=== PATIENT | female | born 1990 | race Hispanic/Latino ===

== ENCOUNTER 2021-07-12 13:55 | Day surgery (SDC) | payer OTHER ==
[2021-07-12] MEDS ORDERED: hydrALAZINE 20 MG/ML VIAL SLOW IVP PRN (15:46)
[2021-07-12 16:18] VITALS: BMI 33.6
[2021-07-12 16:25] LABS: Bilirubin Neg (Negative); Blood, Urine 10 (Negative); Clarity Clear (Clear); Glucose, Urine (Dipstick) Normal (Negative); Ketone, Urine Negative (Negative); Leukocyte 25 (Negative); Nitrite Negative (Negative); Protein, Urine (Dipstick) Negative (Neg-Trace); Specific Gravity, Urine 1.005 (1.002-1.036); Urobilinogen Normal mg/dL (Less than 2)
[2021-07-12 16:50] LABS: RBC/HPF 0-3 HPF (0-3); WBC/HPF 0-3 HPF (0-3)
[2021-07-12 16:51] LABS: Bacteria/HPF Rare-Few HPF (None Seen); Squamous Epithelial 0-3 HPF (0-3)
== END 2021-07-12 17:10 | disposition home health service (06) ==
LOC: CSHLD/OP 13:55
PROVIDERS: ATTEND Obstetrics & Gynecology
DX: O99.891 Other specified diseases and conditions complicating pregnancy (principal); R10.2 Pelvic and perineal pain; Z3A.36 36 weeks gestation of pregnancy
CPT/HCPCS: 81003; 81015; 99282

== ENCOUNTER 2021-07-22 13:50 | Outpatient (CLI) | payer OTHER ==
[2021-07-23 08:59] LABS: SARS-CoV-2 PCR by NAA Not Detected (NotDetected)
== END 2021-07-22 13:51 | disposition home or self-care (01) ==
LOC: CSHLAB 13:50
PROVIDERS: ATTEND Obstetrics & Gynecology
DX: Z20.822 Contact with and (suspected) exposure to COVID-19 (principal)
CPT/HCPCS: U0003; U0005

== ENCOUNTER 2021-07-23 08:53 | Inpatient (IN) | payer BC, OTHER, SELFPAY ==
[2021-07-23] MEDS ORDERED: Ondansetron PF 4 MG/2 ML Vial IVP PRN ×3 (08:54→19:18)
[2021-07-23] MEDS ORDERED: Diphenoxylate HCl/Atropine Tablet PO PRN ×2 (08:54)
[2021-07-23] MEDS ORDERED: Promethazine HCl 25 MG/ML VIAL IM PRN ×2 (08:54→19:12)
[2021-07-23] MEDS ORDERED: Acetaminophen 500 MG TAB PO PRN (08:54)
[2021-07-23] MEDS ORDERED: Misoprostol 200 MCG TAB PR PRN ×2 (08:54→19:18)
[2021-07-23] MEDS ORDERED: hydrALAZINE 20 MG/ML VIAL SLOW IVP PRN ×2 (08:54→19:18)
[2021-07-23] MEDS ORDERED: HYDROcodone/Acetaminophen 5/325 mg Tablet PO PRN ×2 (08:54)
[2021-07-23] MEDS ORDERED: Lidocaine 1% (PF) 30 ML VIAL SC PRN (08:54)
[2021-07-23] MEDS ORDERED: Ibuprofen 800 MG TAB PO PRN (08:54)
[2021-07-23] MEDS ORDERED: Butorphanol Tartrate 1 MG/ML VIAL SLOW IVP PRN (08:54)
[2021-07-23] MEDS ORDERED: Docusate 100 MG CAP PO PRN (08:54)
[2021-07-23] MEDS ORDERED: Lactated Ringer's 1,000 ML IV SCH (09:00)
[2021-07-23] MEDS ORDERED: NS w/ Oxytocin 30 units 500 ML IVPB SCH (09:00)
[2021-07-23] MEDS ORDERED: NS w/ Oxytocin 30 units 500 ML IV SCH ×3 (09:00→20:30)
[2021-07-23 10:14] VITALS: BMI 40.2
[2021-07-23 10:28] LABS: Hemoglobin 9.1 g/dL (12.0-15.5); Mean Corpuscular HGB CONC 29.9 g/dL (32.0-36.0); Mean Corpuscular Hemoglobin 19.5 pg (27.0-33.0); Mean Corpuscular Volume 65.1 fl (81.6-98.3); Mean Platelet Volume 10.2 fl (7.4-10.4); Platelet Count 306 10x3/uL (150-450); RBC Distribution Width 18.4 % (11.5-14.5); Red Blood Cell (RBC) Count 4.67 10x6/uL (3.90-5.03); White Blood Cell (WBC) Count 13.4 10x3/uL (3.5-10.5)
[2021-07-23 11:00] LABS: HIV (1/2) Antibody/Antigen Non-Reactive (NonReactive); HIV 1/2 INDEX 0.07 S/CO (<1.00); Hep B Surf Ag Non-Reactive S/CO (NonReactive)
[2021-07-23 11:01] LABS: Syphilis Antibody Nonreactive (Nonreactive); Syphilis Antibody Index 0.04 S/CO (<1.00 Non-Reactive)
[2021-07-23 11:04] LABS: HBSAg Index 0.16 S/CO (0-0.99)
[2021-07-23] MEDS ORDERED: Terbutaline Sulfate 1 MG/ML VIAL ONE (17:31)
[2021-07-23] MEDS ORDERED: Fentanyl 100 MCG/2 ML VIAL ONE (17:45)
[2021-07-23] MEDS ORDERED: Morphine PF 10 MG/10 ML VIAL ONE (17:45)
[2021-07-23] MEDS ORDERED: Ketorolac Tromethamine 30 MG/ML VIAL ONE (17:46)
[2021-07-23] MEDS ORDERED: PROPOFOL 0 ML ONE (17:46)
[2021-07-23] MEDS ORDERED: Succinylcholine 200 MG/10 ml SYRINGE FS ONE (17:46)
[2021-07-23] MEDS ORDERED: Ondansetron PF 4 MG/2 ML Vial ONE (17:46)
[2021-07-23] MEDS ORDERED: Oxytocin 10 UNITS/ML VIAL ONE ×2 (17:46→18:51)
[2021-07-23] MEDS ORDERED: Dexamethasone 4 mg/ml Vial ONE (17:46)
[2021-07-23] MEDS ORDERED: Famotidine/PF 20 mg/2ml Vial ONE (17:47)
[2021-07-23] MEDS ORDERED: ePHEDrine Sulfate 50 MG/10 ML VIAL ONE (17:49)
[2021-07-23] MEDS ORDERED: diphenhydrAMINE 50 MG/ML VIAL ONE (18:20)
[2021-07-23 18:40] LABS: pH (Cord, venous) 7.385 (7.250-7.350)
[2021-07-23] MEDS ORDERED: Ketorolac Tromethamine 30 MG/ML VIAL IVP PRN (19:12)
[2021-07-23] MEDS ORDERED: Hydrocerin (Eucerin) Cream 120 gm Jar TOP PRN (19:12)
[2021-07-23] MEDS ORDERED: Ondansetron HCl/PF 4 MG/2 ML Vial IVP PRN (19:12)
[2021-07-23] MEDS ORDERED: Naloxone HCl 0.4 mg/ml Vial IVP PRN ×2 (19:12)
[2021-07-23] MEDS ORDERED: Meperidine HCl/PF 25 MG/ML VIAL SLOW IVP PRN ×2 (19:12→22:03)
[2021-07-23] MEDS ORDERED: diphenhydrAMINE 50 MG/ML VIAL IVP PRN (19:12)
[2021-07-23] MEDS ORDERED: L&D-Morphine 4 MG/ML VIAL SLOW IVP PRN (19:12)
[2021-07-23] MEDS ORDERED: Promethazine HCl 25 MG SUPP PR PRN (19:12)
[2021-07-23] MEDS ORDERED: Fentanyl 100 MCG/2 ML VIAL SLOW IVP PRN (19:12)
[2021-07-23] MEDS ORDERED: Naloxone HCl 0.4 mg/ml Vial IV PRN (19:12)
[2021-07-23] MEDS ORDERED: Ketorolac Tromethamine 30 MG/ML VIAL IVP SCH (19:15)
[2021-07-23] MEDS ORDERED: Communication Order-Pharmacy FS SCH (19:15)
[2021-07-23] MEDS ORDERED: Acetaminophen 325 MG TAB PO PRN (19:18)
[2021-07-23] MEDS ORDERED: Bisacodyl 10 MG SUPP PR PRN (19:18)
[2021-07-23] MEDS ORDERED: Lanolin Ointment 7 GM TUBE TOP PRN (19:18)
[2021-07-23] MEDS ORDERED: Boostrix 0.5 ML (Tdap) VIAL IM ONE (19:18)
[2021-07-23] MEDS ORDERED: diphenhydrAMINE 25 MG CAP PO PRN (19:18)
[2021-07-24] MEDS: Docusate Calcium (SURFAK) 240 MG CAP PO SCH ×3 (00:21→21:33)
[2021-07-24] MEDS: Lactated Ringer's 1,000 ML IV SCH ×4 (00:21→23:20)
[2021-07-24 06:08] LABS: Hemoglobin 7.8 g/dL (12.0-15.5); Mean Corpuscular HGB CONC 30.6 g/dL (32.0-36.0); Mean Corpuscular Hemoglobin 19.7 pg (27.0-33.0); Mean Corpuscular Volume 64.6 fl (81.6-98.3); Mean Platelet Volume 9.9 fl (7.4-10.4); Platelet Count 279 10x3/uL (150-450); RBC Distribution Width 17.7 % (11.5-14.5); Red Blood Cell (RBC) Count 3.95 10x6/uL (3.90-5.03); White Blood Cell (WBC) Count 20.2 10x3/uL (3.5-10.5)
[2021-07-24] MEDS ORDERED: Zolpidem Tartrate 5 MG TAB PO PRN (07:15)
[2021-07-24] MEDS ORDERED: Meperidine HCl/PF 25 MG/ML VIAL IM PRN (07:15)
[2021-07-24] MEDS ORDERED: HYDROcodone/Acetaminophen 5/325 mg Tablet PO PRN (07:15)
[2021-07-24] MEDS: Ferrous Sulfate 325 MG TAB PO SCH ×2 (08:50→16:23)
[2021-07-24] MEDS: Simethicone Chewable 80 MG TAB PO PRN ×2 (08:50→18:08)
[2021-07-24] MEDS: Prenatal Vitamin 1 TAB PO SCH (08:50)
[2021-07-24] MEDS: HYDROcodone/Acetaminophen 5/325 mg Tablet PO PRN (09:26)
[2021-07-24] MEDS: Ibuprofen 800 MG TAB PO SCH (21:33)
[2021-07-25] MEDS: Ibuprofen 800 MG TAB PO SCH (04:56)
[2021-07-25] MEDS: Simethicone Chewable 80 MG TAB PO PRN (05:13)
[2021-07-25] MEDS: Lactated Ringer's 1,000 ML IV SCH ×2 (05:42→11:41)
[2021-07-25] MEDS: Ferrous Sulfate 325 MG TAB PO SCH (08:51)
[2021-07-25] MEDS: Docusate Calcium (SURFAK) 240 MG CAP PO SCH (08:51)
[2021-07-25] MEDS: Prenatal Vitamin 1 TAB PO SCH (08:52)
[2021-07-25] MEDS: HYDROcodone/Acetaminophen 5/325 mg Tablet PO PRN (11:42)
[2021-07-25 12:03] VITALS: BP 114/62; TEMP 98.1
== END 2021-07-25 13:45 | disposition home or self-care (01) | DRG 787 ==
LOC: CSHLD 08:53 → CSHANTE 23:04
PROVIDERS: ADMIT Obstetrics & Gynecology; ATTEND Obstetrics & Gynecology
PROC: 10D00Z1 Extraction of Products of Conception, Low, Open Approach (ICD-10-PCS; principal; 2021-07-23)
DX: O76 Abnormality in fetal heart rate and rhythm complicating labor and delivery (principal); O41.03X0 Oligohydramnios, third trimester, not applicable or unspecified; Z37.0 Single live birth; Z3A.37 37 weeks gestation of pregnancy; O69.4XX0 Labor and delivery complicated by vasa previa, not applicable or unspecified; O69.81X0 Labor and delivery complicated by cord around neck, without compression, not applicable or unspecified; O99.02 Anemia complicating childbirth; D64.9 Anemia, unspecified
CPT/HCPCS: 36415; 82805; 85027; 86780; 86850; 86900; 86901; 87340; 87389; 88307; J0690; J1100; J1200; J1885; J2175; J2274; J2405; J2590; J2704; J3010; J7120; S0028

== ENCOUNTER 2022-04-20 14:06 | Emergency (ER) | payer BC | END 2022-04-20 16:00 | disposition home or self-care (01) | LOC: CSHERS 14:06 | DX: R50.9 Fever, unspecified (principal); R05.9 Cough, unspecified; Z20.822 Contact with and (suspected) exposure to COVID-19 | CPT/HCPCS: 87804; 99283; U0003; U0005 ==

== ENCOUNTER 2022-05-03 08:11 | Emergency (ER) | payer BC, SELFPAY | END 2022-05-03 09:30 | disposition home or self-care (01) | LOC: CSHERS 08:11 | DX: S93.601A Unspecified sprain of right foot, initial encounter (principal); W18.30XA Fall on same level, unspecified, initial encounter ==

== ENCOUNTER 2025-05-09 09:02 | Emergency (ER) | payer OTHER, SELFPAY ==
[2025-05-09] MEDS ORDERED: diphenhydrAMINE 50 MG/ML VIAL ONE (09:23)
[2025-05-09] MEDS ORDERED: Famotidine/PF 20 mg/2ml Vial ONE (09:24)
[2025-05-09] MEDS ORDERED: predniSONE 20 MG TAB ONE (09:48)
== END 2025-05-09 10:28 | disposition home or self-care (01) ==
LOC: CSHERS 09:02
DX: T88.6XXA Anaphylactic reaction due to adverse effect of correct drug or medicament properly administered, initial encounter (principal); T48.3X5A Adverse effect of antitussives, initial encounter
CPT/HCPCS: 96372; 96374; 96375; J0169; J1200; J2919; J7512